=== PATIENT | female | born 1940 | race Caucasian/White ===

== ENCOUNTER 2021-01-12 02:46 | Inpatient (IN) | payer MEDICARE, BC ==
[2021-01-12 06:12] VITALS: BMI 41.9
[2021-01-14 07:54] VITALS: TEMP 98
[2021-01-14 11:18] VITALS: BP 156/78
== END 2021-01-14 12:51 | DRG 313 ==
LOC: ERS 02:46 → 2SW 04:28 → OBSVTOIN 01-13 18:00
PROVIDERS: ADMIT Internal Medicine; ATTEND Internal Medicine
DX: R07.89 Other chest pain (principal); I16.1 Hypertensive emergency; Z68.41 Body mass index [BMI] 40.0-44.9, adult; I48.91 Unspecified atrial fibrillation; N18.9 Chronic kidney disease, unspecified; I12.9 Hypertensive chronic kidney disease with stage 1 through stage 4 chronic kidney disease, or unspecified chronic kidney disease; E78.5 Hyperlipidemia, unspecified; E11.22 Type 2 diabetes mellitus with diabetic chronic kidney disease; E66.9 Obesity, unspecified; Z66 Do not resuscitate; I44.7 Left bundle-branch block, unspecified; E03.9 Hypothyroidism, unspecified; R60.0 Localized edema; R26.9 Unspecified abnormalities of gait and mobility; G20 Parkinson's disease; Z86.73 Personal history of transient ischemic attack (TIA), and cerebral infarction without residual deficits; Z79.4 Long term (current) use of insulin; Z79.899 Other long term (current) drug therapy
CPT/HCPCS: 36415; 36416; 71045; 78452; 80053; 80061; 83036; 83735; 83880; 84443; 84484; 85025; 93005; 93017; 93306; 94760; 96372; 96374; 96375; 96376; A9500; G0378; J0360; J1650; J1815; J2785

== ENCOUNTER 2023-06-11 12:00 | Inpatient (IN) | payer BC, MEDICARE ==
[2023-06-11 12:33] LABS: #Basophils 0.1 thou/uL (0.0-0.2); #Eosinphils 0.2 thou/uL (0.0-0.7); #Monocytes 1.2 thou/uL (0.11-0.59); #Neutrophils 7.9 thou/uL (1.40-6.50); %Basophils 0.6 % (0.0-1.0); %Eosinophils 1.6 % (0.0-10.0); %Lymphocytes 25.6 % (21.0-51.0); %Monocytes 9.1 % (0.0-10.0); %Neutrophils 62.5 % (42.0-75.0); Hematocrit 32.8 % (36.0-47.0); Hemoglobin 10.3 g/dL (12.0-16.0); Mean Corpuscular HGB CONC 31.4 g/dL (32.0-36.0); Mean Corpuscular Hemoglobin 27.1 pg (27.0-31.0); Mean Corpuscular Volume 86.3 fl (78.0-98.0); Mean Platelet Volume 9.9 fL (7.4-10.4); Platelet Count 447 10x3/uL (130-400); RBC Distribution Width 14.5 % (11.5-14.5); White Blood Cell (WBC) Count 12.6 10x3/uL (4.8-10.8)
[2023-06-11 12:56] LABS: ALT (SGPT) Less than 7 U/L (8-55); AST (SGOT) 16 U/L (5-34); Albumin 4.4 g/dL (3.4-4.8); Alkaline Phosphatase 78 U/L (40-110); Anion Gap 16 mmol/L (10-20); BUN (Urea Nitrogen) 22 mg/dL (9.8-20.1); Bilirubin, Total 0.6 mg/dL (0.2-1.2); Calc. Creatinine Clearance 0 mL/min (70-130); Carbon Dioxide 23 mmol/L (23-31); Chloride 98 mmol/L (98-107); Estimated GFR 38; Globulin 4.1 g/dL (2.4-3.5); Glucose 168 mg/dL (83-110); Potassium 4.1 mmol/L (3.5-5.1); Protein, Total 8.5 g/dL (5.8-8.1); Sodium 133 mmol/L (136-145)
[2023-06-11 12:58] LABS: Troponin I 0.028 ng/mL (< 0.028)
[2023-06-11] MEDS ORDERED: Nitroglycerin 0.4 MG TAB 1 EACH ONE (13:09)
[2023-06-11] MEDS ORDERED: Furosemide 40 MG/4 ML VIAL ONE (13:09)
[2023-06-11] MEDS ORDERED: cefTRIAXone (ROCEPHIN) 2 GM VIAL ONE (13:10)
[2023-06-11] MEDS ORDERED: Azithromycin 500 MG VIAL ONE (13:10)
[2023-06-11] MEDS ORDERED: Nitroglycerin 2% Ointment 1 INCH/1 GM Packet ONE (13:10)
[2023-06-11] MEDS ORDERED: Sodium Chloride 0.9% 200 ML ONE (13:11)
[2023-06-11 13:45] LABS: Magnesium 2.6 mg/dL (1.6-2.6)
[2023-06-11 14:00] LABS: Base Excess -1.4 mEq/L (-2.0 to +3.0); Calcium, Ionized (venous) 1.07 mmol/L (1.16-1.32); Chloride (VBG) 98 mmol/L (98-106); Hematocrit-VBG 32 % (36.0-47.0); Hemoglobin (Hb) 10.9 g/dL (11.7-16.1); Potassium (VBG) 4.33 mmol/L (3.70-5.30); Sodium 136 mmol/L (133-146); pH (venous) 7.319 (7.32-7.43)
[2023-06-11] MEDS ORDERED: Acetaminophen 325 MG TAB PO PRN (14:54)
[2023-06-11] MEDS ORDERED: Ondansetron PF 4 MG/2 ML Vial IVP PRN (14:54)
[2023-06-11] MEDS ORDERED: Dextrose 5% in Water 1,000 ML IV PRN (15:24)
[2023-06-11] MEDS ORDERED: Glucagon 1 MG/ML KIT IM PRN (15:24)
[2023-06-11] MEDS ORDERED: Dextrose 50% Abboject 50 ML SYRINGE SLOW IVP PRN (15:24)
[2023-06-11 16:14] LABS: Bilirubin Negative (Negative); Blood, Urine Negative (Negative); CAUTI Indications for Culture Dysuria,urgency,freq; Clarity Clear (Clear); Glucose, Urine (Dipstick) Normal (Negative); Ketone, Urine Negative (Negative); Leukocyte 75 Leu/uL (Negative); Nitrite Negative (Negative); Protein, Urine (Dipstick) 20 mg/dL (Neg-Trace); RBC/HPF 0-3 HPF (0-3); Specific Gravity, Urine 1.008 (1.002-1.036); Squamous Epithelial 0-3 HPF (0-3); Urobilinogen Normal mg/dL (Less than 2); pH, Urine 5.5 (5.0-9.0)
[2023-06-11 16:16] LABS: Bacteria/HPF 1+ HPF (None Seen); Urine Culture Reflex No No
[2023-06-11 16:46] LABS: SARS-CoV-2 NAA Rapid Test Not Detected (NotDetected)
[2023-06-11 17:02] VITALS: BMI 40.9
[2023-06-11 17:29] LABS: Troponin I 0.066 ng/mL (< 0.028)
[2023-06-11] MEDS: Apixaban 2.5 MG TAB PO SCH (20:08)
[2023-06-11] MEDS: Famotidine/PF 20 mg/2ml Vial SLOW IVP SCH (20:08)
[2023-06-11] MEDS: Metoprolol Tartrate 25 MG TAB PO SCH (20:08)
[2023-06-11] MEDS: HumaLOG 300 UNITS/3 ML VIAL SC PRN (20:09)
[2023-06-11 20:40] LABS: Troponin I 0.184 ng/mL (< 0.028)
[2023-06-11] MEDS ORDERED: traMADol HCl 50 MG TAB PO PRN (22:07)
[2023-06-11] MEDS: traMADol HCl 50 MG TAB PO PRN (22:19)
[2023-06-12 03:48] LABS: #Basophils 0.1 thou/uL (0.0-0.2); #Eosinphils 0.1 thou/uL (0.0-0.7); #Monocytes 0.8 thou/uL (0.11-0.59); #Neutrophils 6.4 thou/uL (1.40-6.50); %Basophils 0.5 % (0.0-1.0); %Eosinophils 1.4 % (0.0-10.0); %Lymphocytes 18.7 % (21.0-51.0); %Neutrophils 70.2 % (42.0-75.0); Hemoglobin 8.9 g/dL (12.0-16.0); Mean Corpuscular HGB CONC 30.7 g/dL (32.0-36.0); Mean Corpuscular Hemoglobin 26.9 pg (27.0-31.0); Mean Corpuscular Volume 87.6 fl (78.0-98.0); Mean Platelet Volume 10.3 fL (7.4-10.4); RBC Distribution Width 14.6 % (11.5-14.5); Red Blood Cell (RBC) Count 3.31 mill/uL (4.20-5.40); White Blood Cell (WBC) Count 9.1 10x3/uL (4.8-10.8)
[2023-06-12 04:13] LABS: Anion Gap 15 mmol/L (10-20); BUN (Urea Nitrogen) 22 mg/dL (9.8-20.1); Calc. Creatinine Clearance 56 mL/min (70-130); Calcium 8.3 mg/dL (7.8-10.44); Carbon Dioxide 23 mmol/L (23-31); Chloride 100 mmol/L (98-107); Estimated GFR 37; Glucose 127 mg/dL (83-110); Potassium 4.3 mmol/L (3.5-5.1); Sodium 134 mmol/L (136-145)
[2023-06-12 04:17] LABS: Platelet Count 323 10x3/uL (130-400)
[2023-06-12] MEDS: Furosemide 40 MG/4 ML VIAL SLOW IVP SCH ×2 (05:44→15:16)
[2023-06-12] MEDS: Doxycycline 100 MG in Sodium Chloride 0.9% 100 ML IVPB SCH ×2 (08:04→21:31)
[2023-06-12] MEDS: Apixaban 2.5 MG TAB PO SCH ×2 (08:04→21:32)
[2023-06-12] MEDS: Levothyroxine Sodium 125 MCG TAB PO SCH (08:05)
[2023-06-12] MEDS: Metoprolol Tartrate 25 MG TAB PO SCH ×2 (08:05→21:33)
[2023-06-12 08:43] LABS: Troponin I 0.381 ng/mL (< 0.028)
[2023-06-12] MEDS ORDERED: Senokot S 8.6-50 MG TAB PO PRN (09:11)
[2023-06-12 12:40] LABS: Troponin I 0.295 ng/mL (< 0.028)
[2023-06-12] MEDS ORDERED: Azithromycin 500 MG in Sodium Chloride 0.9% 250 ML 250 ML IVPB SCH (14:00)
[2023-06-12] MEDS: cefTRIAXone\\ROCEPHIN 1 GM in Sodium Chloride 0.9% 100 ML IVPB SCH (15:16)
[2023-06-12] MEDS: Carbidopa/Levodopa 25-100 mg Tablet PO SCH ×2 (15:16→21:33)
[2023-06-12] MEDS: Gabapentin 100 MG CAP PO SCH ×2 (15:16→21:34)
[2023-06-12] MEDS: traMADol HCl 50 MG TAB PO PRN ×2 (17:31→21:39)
[2023-06-12] MEDS: HumaLOG 300 UNITS/3 ML VIAL SC PRN (17:34)
[2023-06-12] MEDS: Famotidine/PF 20 mg/2ml Vial SLOW IVP SCH (21:32)
[2023-06-12] MEDS: Simvastatin 10 MG TAB PO SCH (21:32)
[2023-06-12] MEDS: Lisinopril 10 MG TAB PO SCH (21:33)
[2023-06-13] MEDS: Furosemide 40 MG/4 ML VIAL SLOW IVP SCH ×2 (05:14→15:13)
[2023-06-13 06:06] LABS: #Basophils 0.1 thou/uL (0.0-0.2); #Eosinphils 0.2 thou/uL (0.0-0.7); #Monocytes 1.1 thou/uL (0.11-0.59); #Neutrophils 5.1 thou/uL (1.40-6.50); %Eosinophils 2.4 % (0.0-10.0); %Lymphocytes 20.7 % (21.0-51.0); %Monocytes 13.7 % (0.0-10.0); %Neutrophils 61.8 % (42.0-75.0); Hemoglobin 8.9 g/dL (12.0-16.0); Mean Corpuscular HGB CONC 30.7 g/dL (32.0-36.0); Mean Corpuscular Hemoglobin 27.4 pg (27.0-31.0); Mean Corpuscular Volume 89.2 fl (78.0-98.0); Mean Platelet Volume 10.7 fL (7.4-10.4); Platelet Count 336 10x3/uL (130-400); RBC Distribution Width 14.7 % (11.5-14.5); Red Blood Cell (RBC) Count 3.25 mill/uL (4.20-5.40); White Blood Cell (WBC) Count 8.3 10x3/uL (4.8-10.8)
[2023-06-13 07:29] LABS: Chloride 99 mmol/L (98-107); Potassium 4.8 mmol/L (3.5-5.1)
[2023-06-13 07:30] LABS: Calcium 8.4 mg/dL (7.8-10.44); Glucose 142 mg/dL (83-110); Sodium 133 mmol/L (136-145)
[2023-06-13 07:32] LABS: Anion Gap 19 mmol/L (10-20); Carbon Dioxide 20 mmol/L (23-31)
[2023-06-13 07:34] LABS: Calc. Creatinine Clearance 46 mL/min (70-130); Estimated GFR 32
[2023-06-13 07:35] LABS: BUN (Urea Nitrogen) 23 mg/dL (9.8-20.1)
[2023-06-13] MEDS: Doxycycline 100 MG in Sodium Chloride 0.9% 100 ML IVPB SCH ×2 (09:20→20:28)
[2023-06-13] MEDS: Lisinopril 10 MG TAB PO SCH ×2 (09:21→20:26)
[2023-06-13] MEDS: Gabapentin 100 MG CAP PO SCH ×3 (09:22→20:26)
[2023-06-13] MEDS: Sertraline 25 MG TAB PO SCH (09:22)
[2023-06-13] MEDS: Amlodipine 10 MG TAB PO SCH (09:22)
[2023-06-13] MEDS: Aspirin Chewable 81 MG TAB PO SCH (09:22)
[2023-06-13] MEDS: Levothyroxine Sodium 125 MCG TAB PO SCH (09:22)
[2023-06-13] MEDS: Metoprolol Tartrate 25 MG TAB PO SCH ×2 (09:22→20:27)
[2023-06-13] MEDS: Polyethylene Glycol 3350 17 GM Packet PO SCH (09:23)
[2023-06-13] MEDS: Insulin Glargine 30 UNITS/0.3 ML VIAL SC SCH (09:23)
[2023-06-13] MEDS: Apixaban 2.5 MG TAB PO SCH ×2 (09:23→20:26)
[2023-06-13] MEDS: Cyanocobalamin (Vitamin B-12) 1,000 MCG TAB PO SCH (09:23)
[2023-06-13] MEDS: Carbidopa/Levodopa 25-100 mg Tablet PO SCH ×3 (09:23→20:26)
[2023-06-13] MEDS: HumaLOG 300 UNITS/3 ML VIAL SC PRN (15:12)
[2023-06-13] MEDS: cefTRIAXone\\ROCEPHIN 1 GM in Sodium Chloride 0.9% 100 ML IVPB SCH (15:12)
[2023-06-13] MEDS: Simvastatin 10 MG TAB PO SCH (20:27)
[2023-06-13] MEDS: Famotidine/PF 20 mg/2ml Vial SLOW IVP SCH (20:28)
[2023-06-14] MEDS: HumaLOG 300 UNITS/3 ML VIAL SC PRN ×2 (06:47→12:36)
[2023-06-14] MEDS: Furosemide 40 MG/4 ML VIAL SLOW IVP SCH ×2 (06:47→14:22)
[2023-06-14] MEDS: Amlodipine 10 MG TAB PO SCH (09:11)
[2023-06-14] MEDS: Metoprolol Tartrate 25 MG TAB PO SCH ×2 (09:12→21:46)
[2023-06-14] MEDS: Levothyroxine Sodium 125 MCG TAB PO SCH (09:12)
[2023-06-14] MEDS: Gabapentin 100 MG CAP PO SCH ×3 (09:12→21:45)
[2023-06-14] MEDS: Aspirin Chewable 81 MG TAB PO SCH (09:12)
[2023-06-14] MEDS: Lisinopril 10 MG TAB PO SCH ×2 (09:12→21:46)
[2023-06-14] MEDS: Cyanocobalamin (Vitamin B-12) 1,000 MCG TAB PO SCH (09:13)
[2023-06-14] MEDS: Carbidopa/Levodopa 25-100 mg Tablet PO SCH ×3 (09:13→21:44)
[2023-06-14] MEDS: Apixaban 2.5 MG TAB PO SCH ×2 (09:13→21:44)
[2023-06-14] MEDS: Sertraline 25 MG TAB PO SCH (09:13)
[2023-06-14] MEDS: Insulin Glargine 30 UNITS/0.3 ML VIAL SC SCH (09:13)
[2023-06-14] MEDS: Polyethylene Glycol 3350 17 GM Packet PO SCH (09:13)
[2023-06-14] MEDS: Doxycycline 100 MG in Sodium Chloride 0.9% 100 ML IVPB SCH ×2 (09:14→21:44)
[2023-06-14 09:33] LABS: #Basophils 0.1 thou/uL (0.0-0.2); #Eosinphils 0.3 thou/uL (0.0-0.7); #Monocytes 0.9 thou/uL (0.11-0.59); #Neutrophils 3.7 thou/uL (1.40-6.50); %Eosinophils 5.1 % (0.0-10.0); %Lymphocytes 20.8 % (21.0-51.0); %Monocytes 14.3 % (0.0-10.0); %Neutrophils 58.5 % (42.0-75.0); Hematocrit 30.9 % (36.0-47.0); Hemoglobin 9.6 g/dL (12.0-16.0); Mean Corpuscular HGB CONC 31.1 g/dL (32.0-36.0); Mean Corpuscular Hemoglobin 27.3 pg (27.0-31.0); Mean Corpuscular Volume 87.8 fl (78.0-98.0); Mean Platelet Volume 9.6 fL (7.4-10.4); Platelet Count 389 10x3/uL (130-400); RBC Distribution Width 14.5 % (11.5-14.5); Red Blood Cell (RBC) Count 3.52 mill/uL (4.20-5.40); White Blood Cell (WBC) Count 6.2 10x3/uL (4.8-10.8)
[2023-06-14 09:56] LABS: Anion Gap 13 mmol/L (10-20); BUN (Urea Nitrogen) 27 mg/dL (9.8-20.1); Calc. Creatinine Clearance 46 mL/min (70-130); Calcium 8.4 mg/dL (7.8-10.44); Carbon Dioxide 28 mmol/L (23-31); Chloride 97 mmol/L (98-107); Estimated GFR 32; Glucose 183 mg/dL (83-110); Potassium 4.3 mmol/L (3.5-5.1); Sodium 134 mmol/L (136-145)
[2023-06-14] MEDS: cefTRIAXone\\ROCEPHIN 1 GM in Sodium Chloride 0.9% 100 ML IVPB SCH (14:23)
[2023-06-14] MEDS: Famotidine/PF 20 mg/2ml Vial SLOW IVP SCH (21:45)
[2023-06-14] MEDS: Simvastatin 10 MG TAB PO SCH (21:46)
[2023-06-15] MEDS: Furosemide 40 MG/4 ML VIAL SLOW IVP SCH (06:22)
[2023-06-15] MEDS: Insulin Glargine 30 UNITS/0.3 ML VIAL SC SCH (09:03)
[2023-06-15] MEDS: Cyanocobalamin (Vitamin B-12) 1,000 MCG TAB PO SCH (09:04)
[2023-06-15] MEDS: Carbidopa/Levodopa 25-100 mg Tablet PO SCH (09:04)
[2023-06-15] MEDS: Apixaban 2.5 MG TAB PO SCH (09:04)
[2023-06-15] MEDS: Amlodipine 10 MG TAB PO SCH (09:04)
[2023-06-15] MEDS: Aspirin Chewable 81 MG TAB PO SCH (09:05)
[2023-06-15] MEDS: Levothyroxine Sodium 125 MCG TAB PO SCH (09:05)
[2023-06-15] MEDS: Sertraline 25 MG TAB PO SCH (09:06)
[2023-06-15] MEDS: Lisinopril 10 MG TAB PO SCH (09:06)
[2023-06-15] MEDS: Gabapentin 100 MG CAP PO SCH (09:06)
[2023-06-15] MEDS: Doxycycline 100 MG in Sodium Chloride 0.9% 100 ML IVPB SCH (09:07)
[2023-06-15] MEDS: Metoprolol Tartrate 25 MG TAB PO SCH (09:07)
[2023-06-15] MEDS: Polyethylene Glycol 3350 17 GM Packet PO SCH (09:51)
[2023-06-15 11:27] VITALS: BP 146/65; TEMP 98.3
== END 2023-06-15 12:00 | disposition home or self-care (01) | DRG 193 ==
LOC: ERS 12:00 → IMCU/EMU 16:10 → 2NO 06-12 15:38
PROVIDERS: ADMIT Internal Medicine; ATTEND Internal Medicine
PROC: 4A043R1 Measurement of Venous Saturation, Peripheral, Percutaneous Approach (ICD-10-PCS; principal; 2023-06-11)
PROC: 5A09357 Assistance with Respiratory Ventilation, Less than 24 Consecutive Hours, Continuous Positive Airway Pressure (ICD-10-PCS; 2023-06-11)
DX: J18.9 Pneumonia, unspecified organism (principal); I50.33 Acute on chronic diastolic (congestive) heart failure; J96.01 Acute respiratory failure with hypoxia; I13.0 Hypertensive heart and chronic kidney disease with heart failure and stage 1 through stage 4 chronic kidney disease, or unspecified chronic kidney disease; E87.1 Hypo-osmolality and hyponatremia; N18.30 Chronic kidney disease, stage 3 unspecified; E11.22 Type 2 diabetes mellitus with diabetic chronic kidney disease; I48.91 Unspecified atrial fibrillation; Z86.73 Personal history of transient ischemic attack (TIA), and cerebral infarction without residual deficits; Z79.01 Long term (current) use of anticoagulants; Z79.899 Other long term (current) drug therapy; Z79.4 Long term (current) use of insulin; Z90.89 Acquired absence of other organs; Z98.51 Tubal ligation status; E03.9 Hypothyroidism, unspecified; G20.A1 Parkinson's disease without dyskinesia, without mention of fluctuations; Z11.52 Encounter for screening for COVID-19
CPT/HCPCS: 36415; 36416; 71045; 80048; 80053; 81001; 82805; 83605; 83735; 83880; 84484; 85025; 87040; 93005; 93306; 94660; 96365; 96368; 96375; J0456; J0696; J1815; J1940; J2405; J3490; S0028

== ENCOUNTER 2024-07-12 00:30 | Emergency (ER) | payer MEDICARE | END 2024-07-12 04:21 | disposition home or self-care (01) | LOC: ERS 00:30 | DX: S01.512A Laceration without foreign body of oral cavity, initial encounter (principal); S00.83XA Contusion of other part of head, initial encounter; E11.9 Type 2 diabetes mellitus without complications; Z86.73 Personal history of transient ischemic attack (TIA), and cerebral infarction without residual deficits; W01.10XA Fall on same level from slipping, tripping and stumbling with subsequent striking against unspecified object, initial encounter; Y92.002 Bathroom of unspecified non-institutional (private) residence as the place of occurrence of the external cause | CPT/HCPCS: 70450; 70486 ==